=== PATIENT | female | born 1940 | race Two or more races ===

== ENCOUNTER 2017-04-21 12:52 | Outpatient (CLI) | payer OTHER ==
[~2017-04-21 12:52] MED LIST: ALBUTEROL2.5 MG/3 M IH; ALLOPURINOL300 MG PO; AVAPRO150 MG PO; CLOPIDOGREL BIS75 MG PO; CYMBALTA60 MG PO; FISH OIL300 MG PO; FISH OIL500 MG PO; FOLIC ACID1 MG PO; IBANDRONATE SO150 MG PO; PLAVIX75 MG PO; SINGULAIR10 MG PO; SUPPORT118 ML PO; SYMBICORT 16010.2 GM IH; SYNTHROID112 MCG PO; SYNTHROID88 MCG PO; VENTOLIN HFA18 GM IH
== END 2017-04-21 13:07 | disposition home or self-care (01) ==
LOC: LAB 12:52
DX: I11.9 Hypertensive heart disease without heart failure (principal); E78.2 Mixed hyperlipidemia; E03.3 Postinfectious hypothyroidism; N39.0 Urinary tract infection, site not specified; D64.89 Other specified anemias; D68.8 Other specified coagulation defects

== ENCOUNTER → 2017-05-19 | Outpatient (CLI) | payer OTHER | END | disposition home or self-care (01) | LOC: NUCLEAR 05-11 09:00 | DX: I80.01 Phlebitis and thrombophlebitis of superficial vessels of right lower extremity (principal); I80.201 Phlebitis and thrombophlebitis of unspecified deep vessels of right lower extremity ==

== ENCOUNTER → 2017-05-22 10:01 | Outpatient (CLI) | payer OTHER | END | disposition home or self-care (01) | LOC: LAB 10:01 | DX: E03.8 Other specified hypothyroidism (principal) ==

== ENCOUNTER 2017-07-05 13:32 | Outpatient (CLI) | payer OTHER | END 2017-07-05 14:30 | disposition home or self-care (01) | LOC: LAB 13:32 | DX: J11.1 Influenza due to unidentified influenza virus with other respiratory manifestations (principal) ==

== ENCOUNTER 2018-03-20 13:39 | Outpatient (CLI) | payer OTHER | END 2018-03-20 14:41 | disposition home or self-care (01) | LOC: TOM 13:39 | DX: I60.8 Other nontraumatic subarachnoid hemorrhage (principal); C71.9 Malignant neoplasm of brain, unspecified ==

== ENCOUNTER 2018-03-26 13:11 | Outpatient (CLI) | payer OTHER | END 2018-03-26 13:25 | disposition home or self-care (01) | LOC: MRI 13:11 | DX: I63.09 Cerebral infarction due to thrombosis of other precerebral artery (principal) | CPT/HCPCS: 70551 ==

== ENCOUNTER → 2018-04-25 | Outpatient (CLI) | payer OTHER | END | disposition home or self-care (01) | LOC: NUCLEAR 15:06 | DX: G45.8 Other transient cerebral ischemic attacks and related syndromes (principal) ==

== ENCOUNTER 2018-05-04 08:22 | Outpatient (CLI) | payer OTHER | END 2018-05-04 16:42 | disposition home or self-care (01) | LOC: NUCLEAR 08:22 | DX: I20.9 Angina pectoris, unspecified (principal) | CPT/HCPCS: 78452; 93017; A9500; J0153 ==

== ENCOUNTER 2018-11-06 11:26 | Outpatient (CLI) | payer OTHER | END 2018-11-06 11:31 | disposition home or self-care (01) | LOC: RAD 11:26 | DX: S32.048A Other fracture of fourth lumbar vertebra, initial encounter for closed fracture (principal); S32.050A Wedge compression fracture of fifth lumbar vertebra, initial encounter for closed fracture; S32.009A Unspecified fracture of unspecified lumbar vertebra, initial encounter for closed fracture ==

== ENCOUNTER 2020-11-18 11:42 | Outpatient (CLI) | payer OTHER | END 2020-11-18 11:50 | disposition home or self-care (01) | LOC: RAD 11:42 | PROVIDERS: ATTEND Specialist | DX: J45.998 Other asthma (principal) ==

== ENCOUNTER 2021-03-10 09:50 | Outpatient (CLI) | payer OTHER | END 2021-03-10 09:59 | disposition home or self-care (01) | LOC: RAD 09:50 | PROVIDERS: ATTEND Specialist | DX: J84.112 Idiopathic pulmonary fibrosis (principal); E03.8 Other specified hypothyroidism; E04.1 Nontoxic single thyroid nodule ==

== ENCOUNTER 2021-09-14 07:24 | Outpatient (CLI) | payer OTHER | END 2021-09-14 07:26 | disposition home or self-care (01) | LOC: NUCLEAR 07:24 | PROVIDERS: ATTEND Internal Medicine Cardiovascular Disease | DX: I25.10 Atherosclerotic heart disease of native coronary artery without angina pectoris (principal) | CPT/HCPCS: 78452; 93017; A9500; J0153 ==

== ENCOUNTER 2022-02-24 11:02 | Outpatient (CLI) | payer OTHER | END 2022-02-24 11:06 | disposition home or self-care (01) | LOC: NUCLEAR 11:02 | PROVIDERS: ATTEND Orthopaedic Surgery | DX: M81.0 Age-related osteoporosis without current pathological fracture (principal) ==

== ENCOUNTER 2022-07-27 10:49 | Outpatient (CLI) | payer OTHER | END 2022-07-27 10:50 | disposition home or self-care (01) | LOC: NUCLEAR 10:49 | DX: R22.43 Localized swelling, mass and lump, lower limb, bilateral (principal); I50.9 Heart failure, unspecified ==

== ENCOUNTER 2022-11-29 08:37 | Emergency (ER) | payer OTHER ==
[~2022-11-29] VITALS: Ht 160 cm; Wt 74.8 kg
[2022-11-29] MEDS ORDERED: BUTALB-ASPIRIN1 EACH (09:06)
== END 2022-11-29 12:42 | disposition home or self-care (01) ==
LOC: ER 08:37
DX: G44.209 Tension-type headache, unspecified, not intractable (principal); Z88.6 Allergy status to analgesic agent; Z88.0 Allergy status to penicillin; Z88.8 Allergy status to other drugs, medicaments and biological substances
CPT/HCPCS: 36415; 70450; 96365; 99284; J1100

== ENCOUNTER 2022-12-22 10:59 | Outpatient (CLI) | payer OTHER ==
[~2022-12-22 10:59] MED LIST changes: +BUTALB-ASPIRIN1 EACH
== END 2022-12-22 11:06 | disposition home or self-care (01) ==
LOC: RAD 10:59
PROVIDERS: ATTEND Internal Medicine
DX: M79.671 Pain in right foot (principal)

== ENCOUNTER 2023-10-11 07:09 | Outpatient (CLI) | payer OTHER | END 2023-10-11 07:14 | disposition home or self-care (01) | LOC: TOM 07:09 | PROVIDERS: ATTEND Obstetrics & Gynecology Gynecology | DX: R10.2 Pelvic and perineal pain (principal) | CPT/HCPCS: 74178; Q9965 ==

== ENCOUNTER → 2024-11-02 | Emergency (ER) | payer OTHER ==
[~2024-11-02] VITALS: Ht 157.5 cm; Wt 69.4 kg
[2024-11-02 14:59] VITALS: BP 153/53; O2SAT 99
== END | disposition left against medical advice (07) ==
LOC: ER 13:40
DX: Z53.21 Procedure and treatment not carried out due to patient leaving prior to being seen by health care provider (principal)

== ENCOUNTER 2025-03-06 13:16 | Outpatient (CLI) | payer OTHER | END 2025-03-06 13:20 | disposition home or self-care (01) | LOC: RAD 13:16 | PROVIDERS: ATTEND Physical Medicine & Rehabilitation | DX: M54.50 Low back pain, unspecified (principal); R10.20 Pelvic and perineal pain unspecified side; W19.XXXA Unspecified fall, initial encounter ==